=== PATIENT | female | born 1945 | race American Indian/Alaskan Native ===

== ENCOUNTER 2017-01-05 07:55 | Emergency (ER) | payer SELFPAY ==
[2017-01-05] MEDS ORDERED: FIORICET PO ONE (11:32)
[2017-01-05] MEDS ORDERED: TORADOL IM ONE (11:33)
[2017-01-05 12:07] LABS: Basophils % (Auto) 0.4 % (0.0-1.8); Eosinophils % (Auto) 0.7 % (0.0-4.3); Hematocrit 38.3 % (30.3-42.9); Hemoglobin 12.7 gm/dl (10.1-14.3); Mean Corpuscular HGB Conc 33 % (30-34); Mean Corpuscular Hemoglobin 30 pg (28-32); Mean Corpuscular Volume 90 fl (79-97); Platelet Count 330 K/mm3 (140-440); Red Blood Count 4.24 M/mm3 (3.65-5.03); White Blood Count 8.6 K/mm3 (4.5-11.0)
[2017-01-05 12:22] LABS: Anion Gap 17 mmol/L; BUN/Creatinine Ratio 13.33; Blood Urea Nitrogen 8 mg/dL (7-17); Calcium 9.1 mg/dL (8.4-10.2); Carbon Dioxide 26 mmol/L (22-30); Chloride 102.7 mmol/L (98-107); Glucose 109 mg/dL (65-100); Potassium 4.3 mmol/L (3.6-5.0); Sodium 141 mmol/L (137-145)
--- NOTE | 2017-01-05 12:27 | Cat Scan Report ---
CT HEAD WITHOUT CONTRAST: HISTORY: Headache. Serial contiguous axial images were obtained through the cranium. Intravenous contrast material was not administered. The ventricles are normal in size and appearance. There is no mass effect or midline shift. No areas of abnormally increased or decreased attenuation are seen. No mass lesion is seen. The mastoid air cells and visualized portions of the sinuses are normal. IMPRESSION: Cranial CT scan within normal limits.
[2017-01-05] MEDS ORDERED: NACL 0.9% 1000 ML 1,000 ML IV ONE (12:55)
--- NOTE | 2017-01-05 13:58 | Emergency Department Report ---
ED Headache HPI - General Chief Complaint: Headache Stated Complaint: HEADACHE Time Seen by Provider: 01/05/17 11:22 Source: patient, family Exam Limitations: language barrier (creol) - History of Present Illness Initial Comments: 71 yo female with a past medial history of ongoing headaches presents to the hospital complaints of headache for at least 5 years. Pain is at the top of the that occurs daily but is intermittent. He feels hot and like needles in her scalp at times. Patient has difficulty sleeping secondary to pain. Patient using [id number] medication with minimal relief. She denies nausea, vomiting, focal weakness, numbness, and no blurred vision reported. Patient also has other ongoing complaints of reflux and decreased appetite. Patient was brought to the hospital by her son. Patient does not live here and does not have a primary care doctor. Moderate pain reportedly ate this time. Allergies/Adverse Reactions: Allergies No Known Allergies Allergy (Verified 01/05/17 08:07) Home Medications: Ambulatory Orders Butalb/Acetamin/Caff 50-325-40 [Fioricet] 1 each PO Q4H PRN #20 tablet 01/05/17 ED Review of Systems ROS: Stated complaint: HEADACHE Other details as noted in HPI Comment: All other systems reviewed and negative Other: Constitutional: No fevers chills Eyes: No eye pain visual changes ENT: No ear pain or throat pain Neck: Denies pain Respiratory: Denies cough wheezing shortness of breath Cardiovascular: Denies chest pain, palpitations, syncope GI: Denies abdominal pain, nausea, vomiting, : Denies dysuria Musculoskeletal: Denies back pain Skin: Denies rash Neurologic: As per HPI ED Past Medical Hx - Past Medical History Previous Medical History?: Yes Hx Headaches / Migraines: Yes Additional medical history: eyes - Surgical History Past Surgical History?: No - Social History Smoking Status: Never Smoker Substance Use Type: None - Medications Home Medications: Home Medications Medication Instructions Recorded Confirmed Last Taken Type Butalb/Acetamin/Caff 50-325-40 1 each PO Q4H PRN #20 tablet 01/05/17 Unknown Rx [Fioricet] ED Physical Exam - General Limitations: No Limitations - Other Other exam information: General: No limitations, patient is alert in no acute distress Head exam: Atraumatic, normocephalic Eyes exam: Normal appearance, pupils equal reactive to light, extraocular movements intact ENT: Moist mucous membrane, normal oropharynx Neck exam: Normal inspection, full range of motion, no meningismus nontender Respiratory exam: Clear to auscultation bilateral, no wheezes, rales, crackles Cardiovascular: Normal rate and rhythm, normal heart sounds Abdomen: Soft, nondistended, and nontender, with normal bowel sounds, no rebound, or guarding Extremity: Full range of motion normal inspection no deformity Back: Normal Inspection, full range of motion, no tenderness Neurologic: Alert, oriented x3, cranial nerves intact, no motor or sensory deficit Psychiatric: normal affect, normal mood Skin: Warm, dry, intact ED Course Vital Signs 01/05/17 01/05/17 01/05/17 08:03 11:44 12:49 Temperature 98.1 F Pulse Rate 75 71 Pulse Rate [ 71 Lying] Pulse Rate [ 67 Sitting] Pulse Rate [ 72 Standing] Respiratory 16 16 Rate Blood Pressure 121/71 Blood Pressure 131/71 [Left] Blood Pressure 115/65 [Lying] Blood Pressure 129/69 [Sitting] Blood Pressure 131/73 [Standing] O2 Sat by Pulse 100 99 Oximetry - Reevaluation(s) Reevaluation #1: 01/05/17 13:56 Patient received Fioricet, Toradol, and normal saline ordered due to mild decrease in systolic blood pressure was standing to walk orthostatic vital signs and patient complained of feeling dizzy at that time Reevaluation #2: 01/05/17 14:03 headache improved ED Medical Decision Making - Lab Data Result diagrams: 01/05/17 11:55 01/05/17 11:55 Lab Results 01/05/17 01/05/17 Range/Units 11:55 11:55 WBC 8.6 (4.5-11.0) K/mm3 RBC 4.24 (3.65-5.03) M/mm3 Hgb 12.7 (10.1-14.3) gm/dl Hct 38.3 (30.3-42.9) % MCV 90 (79-97) fl MCH 30 (28-32) pg MCHC 33 (30-34) % RDW 14.0 (13.2-15.2) % Plt Count 330 (140-440) K/mm3 Lymph % (Auto) 37.1 H (13.4-35.0) % [place] % (Auto) 8.3 H (0.0-7.3) % Eos % (Auto) 0.7 (0.0-4.3) % Baso % (Auto) 0.4 (0.0-1.8) % Lymph # 3.2 (1.2-5.4) K/mm3 [place] # 0.7 (0.0-0.8) K/mm3 Eos # 0.1 (0.0-0.4) K/mm3 Baso # 0.0 (0.0-0.1) K/mm3 Seg Neutrophils % 53.5 (40.0-70.0) % Seg Neutrophils # 4.6 (1.8-7.7) K/mm3 Sodium 141 (137-145) mmol/L Potassium 4.3 (3.6-5.0) mmol/L Chloride 102.7 (98-107) mmol/L Carbon Dioxide 26 (22-30) mmol/L Anion Gap 17 mmol/L BUN 8 (7-17) mg/dL Creatinine 0.6 L (0.7-1.2) mg/dL Estimated GFR > 60 ml/min BUN/Creatinine Ratio 13.33 % Glucose 109 H (65-100) mg/dL Calcium 9.1 (8.4-10.2) mg/dL - Radiology Data Radiology results: report reviewed (CT head: normal) - Differential Diagnosis dehydration, intracranial hemorrhage,migraine, mass, chronic heada Critical Care Time: No Critical care attestation.: If time is entered above; I have spent that time in minutes in the direct care of this critically ill patient, excluding procedure time. ED Disposition Clinical Impression: Chronic headache Disposition: TO HOME OR SELFCARE Is pt being admited?: No Does the pt Need Aspirin: No Condition: Stable Instructions: Acute Headache (ED) Additional Instructions: Take medication as needed for headache. It is very important that you follow up with a primary care doctor for further evaluation of ongoing headache and other complaints. Please return is symptoms worsen Prescriptions: Butalb/Acetamin/Caff 50-325-40 [Fioricet] 1 each PO Q4H PRN #20 tablet PRN Reason: Headache Referrals: [facility] [Provider Group] - 3-5 Days (primary care clinic) LESA KINNEY MD [Staff Physician] - 3-5 Days (primary care doctor ) Time of Disposition: 14:03
[2017-01-05 14:35] VITALS: BP 119/70
== END 2017-01-05 14:39 | disposition home or self-care (01) ==
LOC: ED 07:55
DX: G43.909 Migraine, unspecified, not intractable, without status migrainosus (principal); G89.29 Other chronic pain
CPT/HCPCS: 36415; 70450; 80048; 85025; 96360; 96372; 99284; J1885; J7030